=== PATIENT | female | born 1980 | race Hispanic/Latino ===

== ENCOUNTER 2019-02-15 16:46 | Emergency (ER) | payer OTHER ==
[2019-02-15] MEDS ORDERED: KETOROLAC TROMETHAMINE 60 MG/2 ML VIAL ONE (17:20)
== END 2019-02-15 17:37 | disposition home or self-care (01) ==
LOC: EDH 16:46
DX: S93.431A Sprain of tibiofibular ligament of right ankle, initial encounter (principal); S93.691A Other sprain of right foot, initial encounter; Z98.51 Tubal ligation status; Z90.710 Acquired absence of both cervix and uterus; X58.XXXA Exposure to other specified factors, initial encounter; Y93.89 Activity, other specified; Y92.89 Other specified places as the place of occurrence of the external cause; Y99.8 Other external cause status
CPT/HCPCS: 73610; 73630; 96372; 99284; J1885